=== PATIENT | male | born 1990 | race Caucasian/White ===

== ENCOUNTER 2021-03-13 22:03 | Emergency (ER) | payer OTHER ==
[~2021-03-13] VITALS: Ht 175.3 cm; Wt 77.0 kg
[2021-03-13 22:24] VITALS: BP 102/56
--- NOTE | 2021-03-13 22:28 | PHYS DOC ---
Adult General HPI HPI Patient is a 30-year-old male with a self-reported history of anxiety and some insomnia who presents to the emergency department from the [facility] which he has been staying at for the last 3 weeks. States he was released from residential to the [facility]. States that since he has been out of residential he has seen a primary care physician, Denis eVla and has some appointments scheduled upcoming for medication management and well checks. States that he has just been really tired and earlier at the [facility] they told him that he seemed to be acting weird and should go to the emergency department. States that he told them that he was fine and did not need to go but was told that he had to go so he came. Patient denies any headache, changes in vision, confusion, chest pain, shortness of breath, abdominal pain, nausea, vomiting, dysuria, hematuria, blood in the stool. Denies any numbness/weakness/tingling. Denies any trouble sitting, standing or walking. Denies any alcohol or drug use. States he feels well and would just like to be discharged back home so he could go to sleep. Review of Systems Review of Systems Review of systems otherwise unremarkable except noted in HPI Physical Exam Physical Exam Constitutional: Well developed, well nourished, no acute distress, non-toxic appearance. [] HENT: Normocephalic, atraumatic, bilateral external ears normal, oropharynx moist, no oral exudates, nose normal. [] Eyes: PERRLA, EOMI, conjunctiva normal, no discharge. [] Neck: Normal range of motion, no tenderness, supple, no stridor. [] Cardiovascular:Heart rate regular rhythm, no murmur [] Lungs & Thorax: Bilateral breath sounds clear to auscultation [] Abdomen: Bowel sounds normal, soft, no tenderness, no masses, no pulsatile masses. [] Skin: Warm, dry, no erythema, no rash. [] Back: No tenderness, no CVA tenderness. [] Extremities: No tenderness, no cyanosis, no clubbing, ROM intact, no edema. [] Neurologic: Alert and oriented X 3, normal motor function, normal sensory function, able to sit, stand and walk without issue no focal deficits noted. [] Psychologic: Affect normal, judgement normal, mood normal. [] EKG EKG [] Radiology/Procedures Radiology/Procedures [] Heart Score C/O Chest Pain: No Risk Factors: Risk Factors: DM, Current or recent (<one month) smoker, HTN, HLP, family history of CAD, obesity. Risk Scores: Risk Factors: DM, Current or recent (<one month) smoker, HTN, HLP, family history of CAD, obesity. Course & Med Decision Making Course & Med Decision Making Patient is a 30-year-old male who presents from the [facility] at the recommendation of the [facility]. Patient stated that he was told that he was acting strange and needed to go to the emergency department. Patient denies any alcohol, or drug use. Denies any confusion, slurred speech, facial droop trouble sitting, standing or walking. States that he has absolutely no medical complaints, does not think he should be in the emergency department and would like to be discharged home. Patient able to take p.o. in the ED. Patient pleasant, cooperative and given resources for local primary c are physicians and free clinics as well as housing, transportation food pantry's which he was appreciative of and read in the emergency department. The [facility] was called to update on patient's status and need for transportation back. Patient very grateful, verbalized understanding and agreed with plan of discharge back to [facility]. [] Dragon Disclaimer Dragon Disclaimer This electronic medical record was generated, in whole or in part, using a voice recognition dictation system. Departure Departure: Impression: Primary Impression: Well adult health check Disposition: HOME / SELF CARE / HOMELESS Condition: GOOD Referrals: PCP,NO (PCP) ENDY AYON MD Patient Instructions: Hypertension Additional Instructions: Thank you for coming into the emergency department tonight and allowing us to take care of you. Please read the attached information carefully and also read the resources given to you about local free clinics, primary care physicians, dentists, transportation, housing and food resources. Please keep your upcoming appointment with Dr. Denis Vela as discussed. You were sent here by the [facility] as they were concerned that you had ingested some illegal substances and were acting strange but on arrival you stated that you have had no alcohol or illegal substances and felt fine. You denied any medical complaints, were able to drink without issue, and sit, stand and walk without i ssue. He stated that you felt fine, did not feel like he needed to be in the emergency department would just like to be discharged out without any work-up. Here in the emergency department your vital signs did show that you had some high blood pressure or hypertension that should be addressed with Dr. Vela when you see them. As discussed, please come back to the emergency department immediately with any new or concerning symptoms. CARMELITA REYES MD Mar 13, 2021 22:28
== END 2021-03-13 22:30 | disposition home or self-care (01) ==
LOC: ER 22:03
DX: Z00.00 Encounter for general adult medical examination without abnormal findings (principal); F41.9 Anxiety disorder, unspecified; G47.00 Insomnia, unspecified
CPT/HCPCS: 99283

== ENCOUNTER 2021-06-20 16:45 | Emergency (ER) | payer OTHER ==
[~2021-06-20] VITALS: Ht 175.3 cm; Wt 77.0 kg
[2021-06-20 17:07] VITALS: BP 130/87
[2021-06-20] MEDS ORDERED: ONDANSETRON ODT 4 MG TAB.RAPDIS PO ONE (17:15)
[2021-06-20] MEDS ORDERED: ONDA4TAB12 PO (17:17)
--- NOTE | 2021-06-20 17:17 | PHYS DOC ---
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 Patient states he has not drink for 2 days. Complaining of nausea and difficulty sleeping. Patient states he regularly used K2 daily for several years. No other medical problems. Patient denies any other ingestion or dependent Review of Systems: Review of Systems: All other systems within normal limits except for as noted in the HPI Allergies: Allergies: Allergies Coded Allergies Type Severity Reaction Last Updated Verified No Known Drug Allergies 03/13/21 No Physical Exam: PE: Constitutional: Well developed, well nourished, no acute distress, non-toxic appearance. [] HENT: Normocephalic, atraumatic, bilateral external ears normal, nose normal. [] Eyes: PERRLA, conjunctiva normal, no discharge. [] Neck: No rigidity, supple, no stridor. [] Cardiovascular: Regular rate and rhythm, brisk cap refill [] Lungs & Thorax: Non labored symmetric respirations, no tachypnea or respiratory distress [] Abdomen: Soft, nondistended. Skin: Warm, dry, no erythema, no rash. [] Back: Unremarkable Extremities: No deformities, range of motion grossly intact, no lower extremity edema [] Neurologic: Alert and oriented X 3, no focal deficits noted. [] Psychologic: Affect normal, judgement normal, mood normal. [] EKG: EKG: [] Radiology/Procedures: Radiology/Procedures: [] Heart Score: C/O Chest Pain: No Risk Factors: Risk Factors: DM, Current or recent (<one month) smoker, HTN, HLP, family history of CAD, obesity. Risk Scores: Score 0 - 3: 2.5% MACE over next 6 weeks - Discharge Home Score 4 - 6: 20.3% MACE over next 6 weeks - Admit for Clinical Observation Score 7 - 10: 72.7% MACE over next 6 weeks - Early Invasive Strategies Course & Med Decision Making: Course & Med Decision Making Pertinent Labs and Imaging studies reviewed. (See chart for details) [] Dragon Disclaimer: Dragon Disclaimer: This electronic medical record was generated, in whole or in part, using a voice recognition dictation system. Departure Departure: Impression: Primary Impression: Desire for detoxification Disposition: HOME / SELF CARE / HOMELESS Condition: STABLE Referrals: PCP,NO (PCP) Patient Instructions: Nausea, Adult Scripts Ondansetron (ONDANSETRON ODT) 4 Mg Tab.rapdis 1 TAB PO PRN Q6-8HRS PRN for NAUSEA for 5 Days, #16 TAB Prov: DANIEL HAYES MD 06/20/21 DANIEL HAYES MD Jun 20, 2021 17:17
== END 2021-06-20 18:03 | disposition home or self-care (01) ==
LOC: ER 16:45
DX: F12.93 Cannabis use, unspecified with withdrawal (principal); R11.0 Nausea; F41.9 Anxiety disorder, unspecified; F32.9 Major depressive disorder, single episode, unspecified
CPT/HCPCS: 99283

== ENCOUNTER → 2021-06-28 | Outpatient (CLI) | payer OTHER ==
[2021-06-20 17:07] VITALS: BP 130/87
[~2021-06-28] MED LIST: ONDA4TAB12 PO
--- NOTE | 2021-06-28 18:35 | RAD ---
XR CERVICAL SPINE 2-3V History: Cervicalgia radiating down left arm. Comparison: None. Technique: 3 views of the cervical spine. Findings: There are 7 non-rib bearing cervical vertebral segments. There is no evidence of fracture. No destructive osseous lesions are seen. Alignment is normal. No significant facet disease. Disc spaces are preserved. Soft tissues are unremarkable. IMPRESSION: 1. No significant cervical spine pathology. Electronically signed by: Schuyler Delacruz MD (06/28/2021 6:33 PM) [id number]
== END ==
LOC: RAD 11:37
PROVIDERS: ATTEND Family Medicine
DX: M54.2 Cervicalgia (principal)
CPT/HCPCS: 72040